=== PATIENT | male | born 1970 | race Caucasian/White ===

== ENCOUNTER 2018-07-30 11:44 | Emergency (ER) | payer OTHER ==
[2018-07-30] MEDS ORDERED: Silver Sulfadiazine 1% Crm 50 GM Tube TOP ONE (11:45)
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
== END 2018-07-30 14:16 | disposition home or self-care (01) ==
LOC: FB.ED 11:44
DX: T22.212A Burn of second degree of left forearm, initial encounter (principal); T22.211A Burn of second degree of right forearm, initial encounter; Y99.0 Civilian activity done for income or pay; X13.1XXA Other contact with steam and other hot vapors, initial encounter
CPT/HCPCS: 16020; 99000; 99283; A9270

== ENCOUNTER 2018-08-07 16:59 | Emergency (ER) | payer MEDICAID, OTHER | END 2018-08-07 17:08 | disposition left against medical advice (07) | LOC: FB.ED 16:59 | DX: Z53.21 Procedure and treatment not carried out due to patient leaving prior to being seen by health care provider (principal) | CPT/HCPCS: 99282 ==